=== PATIENT | male | born 1990 | race Caucasian/White ===

== ENCOUNTER 2025-05-29 08:46 | Outpatient (AMB) | payer OTHER, SELFPAY ==
--- NOTE | 2025-05-29 08:49 | A.OFFPC_ITS ---
Vital Signs 05/29/25 08:51 Height 6 ft Weight 159 lb 8 oz BMI 21.6 BP 112/74 Blood Pressure Location Rt brachial Position Sitting Respiration 14 Pulse 88 Pulse Source Pulse Oximeter Temp 97.8 F Temp Source Oral Pulse Oximetry (%) 98 Oxygen Delivery Method Room Air Intake Visit Reasons: CPE Intake Note: New patient visit [employer] Reports Developer Required: No Allergies No Known Allergies Allergy (Verified 05/29/25 08:52) Tobacco use date assessed: 05/29/25 Dental Screening Dental Screen Date: 05/29/25 Did you have a dental visit in the last 12 months?: No Did you have a dental problem in the last 6 months where you did not have access to dental care?: No Was dental information given to patient?: Patient declined (has an gege on phone to find one) HPI CPE HPI Details Patient is a 34-year-old male [facility] He is transferring from [place]. He denies any significant past medical history. He does feel tired a lot and wonders if it is related to working crazy hours. He also has 3 young children. Former smoker. Fam hx: Maternal grandfather had colon ca in his mid 30s or mid 40s. He is unsure. Unsure if mother has had any abnormal colon cancer screening. Maternal grandmother had pancreatic ca. Paternal uncle [place] in 50s. Father at 38 due to surgical complications following MVA and had crohns. [facility] Surgical History (Updated 05/29/25 @ 08:58 by Milagros Christensen CMA) No pertinent past surgical history Social History (Updated 05/29/25 @ 08:59 by Milagros Christensen CMA) Housing: Apartment Alcohol intake: current Patient Tobacco Use Status: Former Tobacco user Cigarette Packs Per Day: 1 Years Smoked: 15 e-Cigarette/Vaping Use: Former Use Second Hand Smoke Exposure: Yes service: No Current occupational status: employed Current occupation: waste [employer] Current occupational exposures/hazards: Yes (polimire,nitro) Cognitive needs: No Hearing needs: No Vision needs: Yes (glasses) Questionnaire Thrive Questionnaire Date Thrive assessed: 05/29/25 I am a: Patient What is your living situation today?: I have a steady place to live Within the past 12 months, did the food you bought not last and you didn't have the money to get more?: Never true Within the past 12 months, did you worry whether your food would run out before you got money to buy more?: Never true Do you have trouble paying for medicines?: No Do you have trouble getting transportation to medical appointments?: No Do you have trouble paying your heating and electricity bill?: No Do you have trouble taking care of your child, family member or friend?: No Do you have trouble with day-to-day activities such as bathing, preparing meals, shopping, managing finances, etc.?: No Are you currently unemployed and looking for a job?: No Are you interested in more education?: No Please select the resources that you would like help with: None Currently or been in a relationship where the following occur: No concerns rep orted THRIVE Score: 0 AUDIT C Alcohol Use Questionnaire (AUDIT-C) 1. How often do you have a drink containing alcohol?: 2-3 times a week 2. How many drinks containing alcohol do you have on a typical day when you are drinking?: 1 or 2 3. How often do you have six or more drinks on one occasion?: Never Total Score: 3 BRITTNEY-7 AMB Questionnaire BRITTNEY-7 Date BRITTNEY - 7 assessed: 05/29/25 Feeling nervous, anxious, or on edge: 0 = Not at all Not being able to stop or control worryin = Not at all Worrying too much about different things: 0 = Not at all Trouble relaxin = Not at all Being so restless that it is hard to sit still: 0 = Not at all Becoming easily annoyed or irritable: 0 = Not at all Feeling afraid as if something awful might happen: 0 = Not at all Total BRITTNEY-7 score (0-4 normal; 5-9 mild; 10-14 moderate; 15-21 severe): 0 Source: Developed by Drs. Polo Ha, Tasneem Duong, Gerald Gamboa and colleagues, with an educational jaya from [employer]. BRITTNEY-7 Assessment Billing BRITTNEY-7 Assessment Tool: BRITTNEY-7 Assessment 00899 Physical exam (Primary Care) Vital Signs: Last Vital Signs Temp 97.8 F 05/29/25 08:51 Pulse 88 05/29/25 08:51 Resp 14 05/29/25 08:51 BP 112/74 05/29/25 08:51 Pulse Ox 98 05/29/25 08:51 Oxygen Delivery Method Room Air 05/29/25 08:51 BMI result Body Mass Index 21.6 Tobacco/Smoking Status: Tobacco use Status Tobacco use date assessed 05/29/25 05/29/25 09:00 Patient Tobacco Use Status Former Tobacco user 05/29/25 09:00 e-Cigarette/Vaping Use Former Use 05/29/25 09:00 Thrive Assessment: Date of Thrive Assessment Date Thrive assessed 05/29/25 05/29/25 09:00 Currently or been in a relationship where the following occur: No concerns reported Const Orientation/consciousness: patient oriented x3 HENMT Ears: hearing grossly normal bilaterally and TM's normal bilaterally General nose exam: No nasal polyps present Face and sinus: Yes sinuses nontender Mouth: Normal oral and palatal mucosa present Eyes Pupils: Equal, round and reactive pupils present EOM: EOMs intact bilaterally Neck Neck: Yes full ROM and Yes no lymphadenopathy Thyroid: Thyroid normal Chest Chest palpation & inspection: normal inspection of the chest Resp Auscultation: clear to auscultation bilaterally Cardio Rate: regular rate Rhythm: regular rhythm Heart sounds: S1 normal heart sound present and S2 normal heart sound present Peripheral pulses: Peripheral pulses 2+ throughout GI Other: Soft, nontender Auscultation: normal bowel sounds Rectal Exam - Male: Yes deferred General: Yes no CVA tenderness Back/Spine/Pelvis Other: Nontender Back: no CVA tenderness Skin General skin exam: no rashes or lesions noted Neuro General: patient oriented x3, gait normal, CN's II-XI intact bilaterally and deep tendon reflexes 2+ bilaterally Cranial nerves: Yes Equal, round and reactive pupils present Motor exam (neuro): 5/5 motor strength present throughout Sensory Exam: double simultaneous stimulation for sensation normal Coordination: [id number] test normal and Romberg test negative Extrem General: Yes normal to inspection and Yes full ROM Psych Affect: normal affect Attitude: cooperative Thought process: Normal thought process present Thought content: Normal thought content present Insight: Good insight present (Psych) Judgement: Good judgement present (Psych) Coding Level of Care Code New Pt Prev Care 18-39yr(21135 Diagnoses Routine general medical examination at a health care facility Z00.00 Fatigue R53.83 Additional Codes BRITTNEY-7 Assessment Billing - BRITTNEY-7 Assessment Tool: BRITTNEY-7 Assessment [id number] ([id number]) Assessment & Plan Assessment & Plan (1) Routine general medical examination at a health care facility: Code(s): Z00.00 - Encounter for general adult medical examination without abnormal find ings Plan: Health maintenance reviewed Declines immunization Labs ordered. We will follow up pending test results Advised to follow up with me regarding his family history with colon cancer and his mother's history (2) Fatigue: Code(s): R53.83 - Other fatigue Category: Medical Plan: Labs ordered we will follow up pending test results Orders: Orders Complete Blood Count Auto Diff Today R53.83 - Other fatigue, Z01.89 - Encounter for other specified special examinations, Z80.0 - Family history of malignant neoplasm of digestive organs Comprehensive [place]. Panel Fast Today R53.83 - Other fatigue, Z01.89 - Encounter for other specified special examinations, Z80.0 - Family history of malignant neoplasm of digestive organs Lipid Panel Today R53.83 - Other fatigue, Z01.89 - Encounter for other specified special examinations, Z80.0 - Family history of malignant neoplasm of digestive organs TSH reflex Free T4 Today R53.83 - Other fatigue, Z01.89 - Encounter for other specified special examinations, Z80.0 - Family history of malignant neoplasm of digestive organs UA CC w/rflx Micro + Cult Today R30.0 - Dysuria, R53.83 - Other fatigue, Z01.89 - Encounter for other specified special examinations, Z80.0 - Family history of malignant neoplasm of digestive organs Microalbumin, Random (w Creat) Today R53.83 - Other fatigue, Z01.89 - Encounter for other specified special examinations, Z80.0 - Family history of malignant neoplasm of digestive organs Ferritin Today R53.83 - Other fatigue, Z01.89 - Encounter for other specified special examinations, Z80.0 - Family history of malignant neoplasm of digestive organs IRON PROFILE Today R53.83 - Other fatigue, Z01.89 - Encounter for other spe cified special examinations, Z80.0 - Family history of malignant neoplasm of digestive organs Vitamin B12 and Folate Today R53.83 - Other fatigue, Z01.89 - Encounter for oth er specified special examinations, Z80.0 - Family history of malignant neoplasm of digestive organs
[2025-05-29 08:51] VITALS: BP 112/74; PULSE 88; RESP 14; TEMP 36.6; O2SAT 98; BMI 21.6
--- OUTSIDE RECORDS SUMMARY | 2025-05-29 09:10 | XMS_ITS ---
Author Name [facility] Organization Unknown Encounters Encounter Type Encounter Reason Primary Diagnosis Location Date Ambulatory [facility], [facility]. ([facility]) 06/22/2024
== END 2025-05-29 09:28 | disposition home or self-care (01) ==
PROVIDERS: PCP Physician Assistant; Visit Provider Physician Assistant
DX: Z00.00 Encounter for general adult medical examination without abnormal findings (principal); R53.83 Other fatigue

== ENCOUNTER 2025-05-29 08:46 | Outpatient (REF) | payer OTHER, SELFPAY ==
[2025-05-29 11:25] LABS: MANUAL DIFF FLAG NO
[2025-05-29 11:26] LABS: Appearance Urine Clear; Glucose Urine UA Negative (Negative); PH 5.5 (5.0-9.0); Specific Gravity - Urine 1.020 (1.005-1.025)
[2025-05-29 11:28] LABS: Hematocrit 40.5 % (42.0-52.0); Hemoglobin 13.8 g/dl (14.0-18.0); Imm Gran Abs Auto 0.02 X10*3/uL (0.00-0.03); Imm Gran Pct Auto 0.3 % (0.0-0.4); Lymphocytes Absolute Auto 1.8 X10*3/uL (1.2-4.9); Mean Corpuscular HGB Conc 34.1 g/dl (31.0-36.0); Mean Corpuscular Hemoglobin 30.1 pg (27.0-33.0); Mean Corpuscular Volume 88.4 fL (80.0-98.0); NRBC Abs Auto 0.000 X10*3/uL (0.0-0.012); NRBC Pct Auto 0.0 /100WBC (0.0-0.2); Platelet Count 315 X10*3/uL (160-400); Red Blood Count 4.58 X10*6/uL (4.60-5.80); White Blood Count 5.8 X10*3/uL (4.8-10.8)
[2025-05-29 12:25] LABS: Alanine Aminotransferase 26 U/L (0-40); Albumin Level 4.7 g/dL (3.5-5.0); Alkaline Phosphatase 81 U/L (39-117); Anion Gap 10 (12-20); Aspartate Amino Transferase 22 U/L (5-37); Blood Urea Nitrogen 11 mg/dL (9-16); Calcium 9.1 mg/dL (8.4-10.2); Carbon Dioxide 28 mmol/L (22-29); Chloride 108 mmol/L (96-108); Cholesterol 162 mg/dL (<200); Estimated Glomerular Filt Rate > 60; HDL Cholesterol 49 mg/dL (>40); Iron 98 mcg/dL (45-160); Percent Iron Saturation 32 % (15-50); Potassium 4.1 mmol/L (3.3-5.1); Sodium 142 mmol/L (135-145); Total Iron Binding Capacity 304 mcg/dL (228-428); Total Protein 7.2 g/dL (6.5-8.0); Triglycerides 123 mg/dL (<150); Unsaturated Iron Binding 206 ug/dL
[2025-05-29 12:46] LABS: Ferritin 83 ng/mL (20-250)
[2025-05-29 12:51] LABS: Microalbum/Creatinine Ratio Ur 5.0 ug/mg cr (<30)
[2025-05-29 13:05] LABS: Folate 14.5 ng/mL (> or = 4.0); Vitamin B12 521 pg/mL (200-900)
== END 2025-05-29 08:47 | disposition home or self-care (01) ==
LOC: HO.WFDLDS 08:46
PROVIDERS: PCP Internal Medicine; Visit Provider Physician Assistant
DX: Z00.00 Encounter for general adult medical examination without abnormal findings (principal); R30.0 Dysuria; R53.83 Other fatigue; Z80.0 Family history of malignant neoplasm of digestive organs; Z01.89 Encounter for other specified special examinations
CPT/HCPCS: 36415; 80053; 80061; 81003; 82043; 82570; 82607; 82728; 82746; 83540; 84443; 85025; 96127